=== PATIENT | female | born 1970 | race Caucasian/White ===

== ENCOUNTER 2024-03-04 08:00 | Outpatient (CLI) | payer MEDICAID, OTHER ==
--- NOTE | 2024-03-04 16:03 | XRAY Report ---
PROCEDURE: Finger(s) LT INDICATIONS: CRUSHING INJURY OF LEFT INDEX FINGER TECHNIQUE: AP hand, 2 views of the second finger(s) acquired. COMPARISON: None. FINDINGS: Bones: No fractures or dislocations. No suspicious bony lesions. Soft tissues: No suspicious soft tissue calcifications or masses. IMPRESSION: No acute bony abnormality. If pain persists with conservative management, consider repeat x-ray in 10 -14 days or cross-sectional imaging. Reviewed by: Lamont Chang MD on 03/04/2024 4:01 PM PDT Approved by: Lamont Chang MD on 03/04/2024 4:01 PM PDT Station ID: [id number]
== END 2024-03-04 23:59 | disposition home or self-care (01) ==
LOC: DI.S 08:00
PROVIDERS: ATTEND Physician Assistant Medical
DX: S67.191A Crushing injury of left index finger, initial encounter (principal)